=== PATIENT | male | born 1995 | race American Indian/Alaskan Native ===

== ENCOUNTER 2017-03-18 19:23 | Emergency (ER) | payer SELFPAY ==
[2017-03-18 19:41] VITALS: BP 114/50
[2017-03-18] MEDS ORDERED: KEPPRA 1,000 MG/NS 0.75% 100ML 1,000 MG/100 ML BAG IV ONE (21:06)
[2017-03-18] MEDS ORDERED: FIORICET PO ONE (21:11)
--- NOTE | 2017-03-18 21:15 | Emergency Department Report ---
HPI - General Chief Complaint: Seizure Time Seen by Provider: 03/18/17 21:05 - HPI HPI: Room 24 The patient is 21-year-old male presenting with a chief complaint of seizure. Patient has a history of seizure disorders and states he is mostly compliant with his Keppra but does miss a dose occasionally. Father states he witnessed patient had a seizure at 18:00. The patient was sitting in chair when he felt his right concrete floor and had a generalized tonic-clonic seizure lasting approximately 15 seconds and then is shorter 10 second seizure before the first for completely resolved. Patient complains of a headache and gives a score of 4 /10. Patient complains of neck pain. Location: Neck, head Duration: Constant since 18:00 Quality: Generalized tonic-clonic Severity: Moderate Modifying factors: [see above] Context: [see above] Mode of transportation: [not driving] ED Past Medical Hx - Past Medical History Hx Seizures: Yes - Surgical History Past Surgical History?: No - Family History Family history: no significant - Social History Smoking Status: Current Every Day Smoker (3- 4 cigarettes daily) Substance Use Type: Marijuana - Medications Home Medications: Home Medications Medication Instructions Recorded Confirmed Last Taken Type Butalb/Acetamin/Caff 50-325-40 2 tab PO Q8HR PRN #10 tablet 03/18/17 Unknown Rx [Fioricet] levETIRAcetam [Keppra TAB] 500 mg PO BID #60 tablet 03/18/17 Unknown Rx ED Review of Systems ROS: Stated complaint: SEIZURE Other details as noted in HPI Comment: All other systems reviewed and negative Constitutional: denies: chills, fever Eyes: denies: eye pain, eye discharge, vision change ENT: denies: ear pain, throat pain Respiratory: denies: cough, shortness of breath, wheezing Cardiovascular: denies: chest pain, palpitations Endocrine: no symptoms reported Gastrointestinal: denies: abdominal pain, nausea, diarrhea Genitourinary: denies: urgency, dysuria Musculoskeletal: myalgia Skin: denies: rash Neurological: headache, other (seizure) Psychiatric: denies: anxiety, depression Hematological/Lymphatic: denies: easy bleeding, easy bruising Physical Exam - Physical Exam Vital Signs: Vital Signs 03/18/17 19:31 Temperature 98.8 F Pulse Rate 82 Respiratory 18 Rate Blood Pressure 114/50 O2 Sat by Pulse 100 Oximetry Physical Exam: GENERAL: The patient is well-developed well-nourished male lying on stretcher not appearing to be in acute distress. [] HEENT: Normocephalic. Swelling/hematoma to right forehead. Extraocular motions are intact. Patient has moist mucous membranes. NECK: Supple. Trachea midline CHEST/LUNGS: Clear to auscultation. There is no respiratory distress noted. HEART/CARDIOVASCULAR: Regular. There is no tachycardia. There is no gallop rub or murmur. ABDOMEN: Abdomen is soft, nontender. Patient has normal bowel sounds. There is no abdominal distention. SKIN: There is no rash. There is no edema. There is no diaphoresis. NEURO: The patient is awake, alert, and oriented. The patient is cooperative. The patient has no focal neurologic deficits. The patient has normal speech. Cranial nerves II every 12 grossly intact, no drift MUSCULOSKELETAL: There is no limitation range of motion. ED Course Vital Signs 03/18/17 19:31 Temperature 98.8 F Pulse Rate 82 Respiratory 18 Rate Blood Pressure 114/50 O2 Sat by Pulse 100 Oximetry ED Medical Decision Making - Radiology Data Radiology results: report reviewed (CT head, CT cervical spine), image reviewed (CT head, CT cervical spine) CT head (read by radiologist)-acute intracranial abnormality. Right frontal scalp hematoma. No skull fracture. CT cervical spine (read by radiologist)-no acute cervical spine fracture identified. Correlate with physical exam and follow-up as warranted. - Differential Diagnosis epilepsy, ICH, cerebral contusion Critical care attestation.: If time is entered above; I have spent that time in minutes in the direct care of this critically ill patient, excluding procedure time. ED Disposition Clinical Impression: Seizure, Closed head injury Disposition: DC-01 TO HOME OR SELFCARE Is pt being admited?: No Does the pt Need Aspirin: No Condition: Stable Instructions: Minor Head Injury (ED), Epilepsy (ED) Additional Instructions: Return to the emergency department immediately should you develop worsening symptoms, fever, inability to tolerate food or liquid or any other concerns. Prescriptions: Butalb/Acetamin/Caff 50-325-40 [Fioricet] 2 tab PO Q8HR PRN #10 tablet PRN Reason: Headache levETIRAcetam [Keppra TAB] 500 mg PO BID #60 tablet Referrals: PRIMARY CARE, [Primary Care Provider] - 3-5 Days RUSSEL OLGUIN MD [Staff Physician] - 3-5 Days Time of Disposition: 22:07
--- NOTE | 2017-03-18 21:48 | Cat Scan Report ---
FINAL REPORT EXAM: CT HEAD/BRAIN WO CON HISTORY: head injury after seizure TECHNIQUE: CT imaging acquired through the head without intravenous contrast. Transaxial reformations are provided. PRIORS: None. FINDINGS: The ventricles, cisterns and sulci are normal. No intraparenchymal or extra-axial mass, hemorrhage, or mass effect. Perdomo and white-matter differentiation is normal. Normal spherical shape of the globes. Imaged portions of the paranasal sinuses and mastoid air cells are clear. No skull or facial fracture visualized. Right frontal scalp hematoma. IMPRESSION: No acute intracranial abnormality. Right frontal scalp hematoma. No skull fracture.
--- NOTE | 2017-03-18 21:49 | Cat Scan Report ---
FINAL REPORT EXAM: CT CERVICAL SPINE WO CON HISTORY: head injury after seizure TECHNIQUE: CT imaging is acquired through the cervical spine without contrast. Transaxial, coronal and sagittal reformations are provided. PRIORS: None. FINDINGS: The cervical spine is intact. Vertebral body heights are preserved. No acute fracture or listhesis. Atlanto-dens interval and odontoid process are intact. Intervertebral disc spaces are preserved. No perivertebral soft tissue swelling or hematoma identified. Limited soft tissue exam of the visualized neck is normal. IMPRESSION: No acute cervical spine fracture identified. Correlate with physical exam and follow up as warranted.
== END 2017-03-18 22:19 | disposition home or self-care (01) ==
LOC: ED 19:23
DX: S09.90XA Unspecified injury of head, initial encounter (principal); R56.9 Unspecified convulsions; F17.210 Nicotine dependence, cigarettes, uncomplicated; F12.90 Cannabis use, unspecified, uncomplicated; W08.XXXA Fall from other furniture, initial encounter; Y93.89 Activity, other specified; Y99.9 Unspecified external cause status; Y92.89 Other specified places as the place of occurrence of the external cause
CPT/HCPCS: 70450; 72125; 96374; 99284; J1953

== ENCOUNTER 2019-09-29 07:31 | Emergency (ER) | payer SELFPAY ==
[2019-09-29] MEDS ORDERED: levETIRAcetam 1000 MG/NS 0.75% 1,000 MG/100 ML BAG IV ONE (10:07)
--- NOTE | 2019-09-29 10:37 | Emergency Department Report ---
ED Seizure HPI - General Chief Complaint: Seizure Stated Complaint: SEIZURE Time Seen by Provider: 09/29/19 10:05 Source: patient, EMS Mode of arrival: Stretcher Limitations: No Limitations - History of Present Illness Initial Comments: 24-year-old male with a past medical history seizures not compliant with medications for several months. She states that patient had a seizure this a.m. the patient states he has had a seizure yesterday. Denies tongue laceration or urinary incontinence. No pain reported. Patient is supposed be on Keppra 500 twice a day. - Related Data Previous Rx's Medication Instructions Recorded Last Taken Type Butalb/Acetamin/Caff 50-325-40 2 tab PO Q8HR PRN #10 tablet 03/18/17 Unknown Rx [Fioricet] levETIRAcetam [Keppra TAB] 500 mg PO BID #60 tablet 09/29/19 Unknown Rx Allergies Allergy/AdvReac Type Severity Reaction Status Date / Time No Known Allergies Allergy Unverified 12/05/14 10:10 ED Review of Systems ROS: Stated complaint: SEIZURE Other details as noted in HPI Comment: All other systems reviewed and negative ED Past Medical Hx - Past Medical History Previous Medical History?: Yes Hx Seizures: Yes - Surgical History Past Surgical History?: No - Social History Smoking Status: Current Every Day Smoker Substance Use Type: Marijuana - Medications Home Medications: Home Medications Medication Instructions Recorded Confirmed Last Taken Type Butalb/Acetamin/Caff 50-325-40 2 tab PO Q8HR PRN #10 tablet 03/18/17 Unknown Rx [Fioricet] levETIRAcetam [Keppra TAB] 500 mg PO BID #60 tablet 09/29/19 Unknown Rx ED Physical Exam - General Limitations: No Limitations - Other Other exam information: General: No limitations, patient is alert in no acute distress Head exam: Atraumatic, normocephalic Eyes exam: Normal appearance, pupils equal reactive to light, extraocular movements intact ENT: Moist mucous membrane, normal oropharynx Neck exam: Normal inspection, full range of motion, no meningismus nontender Respiratory exam: Clear to auscultation bilateral, no wheezes, rales, crackles Cardiovascular: Normal rate and rhythm, normal heart sounds Abdomen: Soft, nondistended, and nontender, with normal bowel sounds, no rebound, or guarding Extremity: Full range of motion normal inspection no deformity Back: Normal Inspection, full range of motion, no tenderness Neurologic: Alert, oriented x3, cranial nerves intact, no motor or sensory deficit Psychiatric: normal affect, normal mood Skin: Warm, dry, intact ED Course Vital Signs 09/29/19 09/29/19 07:45 10:07 Temperature 98.4 F Pulse Rate 76 85 Respiratory 16 18 Rate Blood Pressure 132/82 Blood Pressure 132/82 105/50 [Left] O2 Sat by Pulse 76 L 99 Oximetry ED Medical Decision Making - Medical Decision Making Patient loaded with 1 g of Keppra IV. Script for Keppra provided. f/u to follow-up encouraged - Differential Diagnosis sz, noncompliance Critical Care Time: No Critical care attestation.: If time is entered above; I have spent that time in minutes in the direct care of this critically ill patient, excluding procedure time. ED Disposition Clinical Impression: Seizure, Noncompliance with medication regimen, Medication refill Disposition: TO HOME OR SELFCARE Is pt being admited?: No Does the pt Need Aspirin: No Condition: Stable Instructions: Epilepsy (ED) Additional Instructions: Take the medication as prescribed. Follow up with you doctor or with the doctor provided. Return if symptoms worsen as indicated by your discharge instructions. Prescriptions: levETIRAcetam [Keppra TAB] 500 mg PO BID #60 tablet Referrals: CORY CAIN MD [Staff Physician] - 3-5 Days (Neurologist) ILIA GUTIERREZ MD [Staff Physician] - 3-5 Days (Neurologist) BJORN BENAVIDES MD [Staff Physician] - 3-5 Days (Primary care doctor)
[2019-09-29 11:56] VITALS: BP 105/47
== END 2019-09-29 14:15 | disposition home or self-care (01) ==
LOC: ED 07:31
DX: R56.9 Unspecified convulsions (principal); Z91.14 Patient's other noncompliance with medication regimen; F17.200 Nicotine dependence, unspecified, uncomplicated
CPT/HCPCS: 82962; 96365; 99284; J1953